=== PATIENT | male | born 1960 | race Caucasian/White ===

== ENCOUNTER 2018-06-23 09:33 | Day surgery (SDC) | payer BC ==
[2018-06-23] MEDS ORDERED: MIDAZOLAM HCL 2MG/2ML VIAL IV ONE (09:34)
[2018-06-23] MEDS ORDERED: LIDOCAINE 2% MDV (20MG/ML) 20ML VIAL IV ONE (09:34)
[2018-06-23] MEDS ORDERED: PROPOFOL 10 MG/ML VIAL IV ONE (09:34)
--- NOTE | 2018-06-23 15:20 | Operative Note ---
DATE OF SURGERY: 06/23/2018 OPERATION: COLONOSCOPY to the cecum with cold biopsy forceps polypectomy x2. INDICATION: History of adenomatous polyps. The patient returns at this time after 3 years for surveillance. He had approximately 9 polyps removed 3 years ago. ANESTHESIA: Intravenous sedation was administered by the department of anesthesiology and included Diprivan titrated to effect. PROCEDURE: Following informed consent from this alert individual including a discussion of the risks and benefits of the procedure and an opportunity for the patient to ask questions, the patient was in the left lateral decubitus position. A digital rectal examination was performed. No abnormalities were noted. Following this, the Olympus [id number] video colonoscope was inserted into the rectum without resistance. The rectal mucosa had a normal appearance with normal folds and distensibility. The colonoscope was advanced up through the colon to the level of the cecum without much difficulty. Throughout the bowel the mucosa appeared normal, the folds were normal, and the bowel was fairly well distensible. The cecum was defined by noting the appendiceal orifice and ileocecal valve. The colon preparation was good. From the base of the cecum, the colonoscope was then withdrawn. In the sigmoid colon there were 2 diminutive polyps noted measuring 3 mm in size, and these were removed with biopsy forceps. No other polyps were seen throughout. Retroflexion in the rectum revealed small internal hemorrhoids. The endoscope was straightened and withdrawn. The patient tolerated the procedure well and was returned to the recovery area in stable condition. IMPRESSION: 1. Two diminutive 3 mm sigmoid polyps removed with biopsy forceps. 2. Small internal hemorrhoids. RECOMMENDATIONS: The patient was advised to have recheck colonoscopy in 5 years' time or sooner should problems arise pending the results of pathology obtained today. Followup will also be with Dr. Higuera. As always, thank you for allowing me to participate in the care of your patient. CC: Angelita MEJIA
== END 2018-06-23 11:17 | disposition home or self-care (01) ==
LOC: HOP 09:33
PROVIDERS: ATTEND Internal Medicine Gastroenterology
DX: Z12.11 Encounter for screening for malignant neoplasm of colon (principal); Z86.010 Personal history of colon polyps; D12.5 Benign neoplasm of sigmoid colon; K64.8 Other hemorrhoids; I10 Essential (primary) hypertension; E03.9 Hypothyroidism, unspecified; J45.909 Unspecified asthma, uncomplicated